=== PATIENT | female | born 1990 | race Two or more races ===

== ENCOUNTER 2025-08-06 08:20 | Outpatient (CLI) | payer MEDICAID ==
--- NOTE | 2025-08-07 06:58 | [facility] CONSULT REPORT ---
[facility] Procedure Note [facility] Procedure Note Consult [facility] # Demographics Type of EEG Read: - Routine EEG - video Patient Location: Outpatient First Name: Tawana Last Name: Dot Date of : 1990 Age: 35 Gender: Female Facility: [facility] Time of Initial Page (): 08/06/2025 11:41 First Contact with Site (): 08/06/2025 11:42 # EEG Interpretation Start Time of EEG Read (): 08/06/2025 09:05 Stop Time of EEG Read (): 08/06/2025 09:33 Duration: 0h 28m Technical Details: - The EEG electrodes were placed using the standard International 10-20 system of electrode placement. Video and an accessory EKG lead were used during the course of this study. - This study was recorded using the Open[employer] EEG software Indication: Possible seizure # Description Photic Stimulation: Performed Hyperventilation: NOT performed Phases Captured: - awake Symmetry: symmetric Posterior Dominant Rhythm: The record is continuous, of normal amplitude and bilaterally symmetrical. There is a well-developed posterior dominant rhythm at 10 Hz. There is a moderate amount of diffuse low amplitude 15-25 Hz beta activity and an appropriate amount of 4-7 Hz theta activity during wakefulness. No significant <4 Hz delta activity is present during wakefulness. Amplitude: normal Reactivity: yes Variability: yes Continuity: continuous EKG: NSR # Abnormalities Stimulation: - photic stimulation does NOT cause abnormalities Epileptiform Abnormalities: - NOT present Focal Slowing: no Seizure: - NOT present No push button events # Impression Impression: normal # Clinical Correlation Clinical Correlation: A normal EEG does not exclude nor support the diagnosis of epilepsy. Additional Comments: Clinical correlation is recommended # Demographics First Name: Tawana Last Name: Dot Facility: [facility] CHETAN BONE MD Aug 07, 2025 06:58
== END 2025-08-06 23:59 | disposition home or self-care (01) ==
LOC: RAD 08:20
PROVIDERS: ATTEND Family Medicine
DX: R55 Syncope and collapse (principal)
CPT/HCPCS: 95819